=== PATIENT | female | born 1990 | race American Indian/Alaskan Native ===

== ENCOUNTER 2020-11-16 22:10 | Emergency (ER) | payer OTHER ==
[2020-11-17] MEDS ORDERED: ACETAMINOPHEN 500 MG TAB PO ONE (02:18)
[2020-11-17] MEDS ORDERED: IBUPROFEN 600 MG TAB PO ONE (02:18)
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
[2020-11-17 03:23] VITALS: BP 112/65
== END 2020-11-17 02:28 | disposition home or self-care (01) ==
LOC: ED 22:10
DX: S39.012A Strain of muscle, fascia and tendon of lower back, initial encounter (principal); M62.830 Muscle spasm of back; Z79.899 Other long term (current) drug therapy; W01.0XXA Fall on same level from slipping, tripping and stumbling without subsequent striking against object, initial encounter; Y93.89 Activity, other specified; Y92.410 Unspecified street and highway as the place of occurrence of the external cause; Y99.8 Other external cause status
CPT/HCPCS: 99282